=== PATIENT | female | born 1975 | race Caucasian/White ===

== ENCOUNTER → 2021-07-28 | Outpatient (CLI) | payer BC | LOC: US 09:43 | DX: R19.7 Diarrhea, unspecified (principal); R11.0 Nausea | CPT/HCPCS: 76705 ==

== ENCOUNTER → 2021-08-21 | Outpatient (CLI) | payer BC | LOC: NM 12:35 | DX: R19.7 Diarrhea, unspecified (principal); R11.0 Nausea | CPT/HCPCS: 78227; A9537; J2805 ==